=== PATIENT | female | born 1955 | race Caucasian/White ===

== ENCOUNTER → 2016-10-30 | Outpatient (CLI) | payer OTHER ==
--- NOTE | 2016-11-08 16:36 | REPMRS ---
Patient History Patient is postmenopausal and had first child at age 37. Family history of breast cancer in paternal grandmother. Patient has has had bxs of both breasts- all benign. Digital Mammo Screening Bilat: October 30, 2016 - Exam #: [id number] Bilateral CC and MLO view(s) were taken. Technologist: Hellen Oro, Technologist Prior study comparison: 2014, digital bilateral screening mammo, performed at [facility]. March 30, 2013, digital bilateral screening mammo, performed at [facility]. May 29, 2011, digital bilateral screening mammo, performed at [facility]. FINDINGS: There are scattered fibroglandular densities. There has been no change in the appearance of the mammogram from the prior studies. There is a needle biopsy marker clip in the upper outer quadrant left breast adjacent to some microcalcifications which are unchanged from the 2012 and 2010 prior studies. There is a mild amount of scattered fibroglandular density which is fairly symmetric. There is no interval development of dominant mass, architectural distortion, or clustered microcalcification suggestive of malignancy. ASSESSMENT: BI-RADS/ACR category 2 mammogram. Benign finding(s). Recommendation Routine screening mammogram in 1 year (for women over age 40). This mammogram was interpreted with the aid of an FDA-approved computer-aided dectection system. Electronically Signed By: Anuj Chin MD 11/08/16 [id number]
== END ==
LOC: M RAD 14:09
PROVIDERS: ATTEND Family Medicine
DX: Z12.31 Encounter for screening mammogram for malignant neoplasm of breast (principal); Z78.0 Asymptomatic menopausal state; R92.8 Other abnormal and inconclusive findings on diagnostic imaging of breast

== ENCOUNTER 2017-03-29 11:27 | Emergency (ER) | payer OTHER ==
[~2017-03-29] VITALS: Ht 167.6 cm; Wt 88.0 kg
[2017-03-29] MEDS ORDERED: LISI10TA4 (11:37)
[2017-03-29] MEDS ORDERED: FLUO40CA (11:37)
[2017-03-29] MEDS ORDERED: TRAD5TAB (11:37)
[2017-03-29] MEDS ORDERED: METF500T4 (11:37)
[2017-03-29] MEDS ORDERED: METO100T5 (11:37)
[2017-03-29] MEDS ORDERED: FENO160T10 (11:37)
[2017-03-29] MEDS ORDERED: CHOL4POW (11:37)
[2017-03-29] MEDS ORDERED: AFLU1INJ (11:37)
[2017-03-29] MEDS ORDERED: JARD1TAB3 (11:37)
[2017-03-29] MEDS ORDERED: NORT50CA (11:37)
[2017-03-29] MEDS ORDERED: INVO100T (11:37)
[2017-03-29] MEDS ORDERED: JANU100T (11:37)
[2017-03-29] MEDS ORDERED: HUMA50IN3 (11:37)
[2017-03-29] MEDS ORDERED: ARIP1TAB4 (11:37)
[2017-03-29] MEDS ORDERED: COLE625TAB (11:37)
[2017-03-29] MEDS ORDERED: ALPR0.25 (11:37)
[2017-03-29] MEDS ORDERED: ERYTOIN8 OS (13:38)
[2017-03-29 13:50] VITALS: BP 138/74
== END 2017-03-29 13:51 | disposition home or self-care (01) ==
LOC: M ED 11:27
DX: H00.025 Hordeolum internum left lower eyelid (principal); E11.9 Type 2 diabetes mellitus without complications; I10 Essential (primary) hypertension; E78.5 Hyperlipidemia, unspecified; K21.9 Gastro-esophageal reflux disease without esophagitis; F17.200 Nicotine dependence, unspecified, uncomplicated; Z79.4 Long term (current) use of insulin; Z88.0 Allergy status to penicillin

== ENCOUNTER → 2018-02-05 | Outpatient (CLI) | payer OTHER | LOC: M RAD 13:19 | DX: Z12.31 Encounter for screening mammogram for malignant neoplasm of breast (principal) | CPT/HCPCS: 77067 ==

== ENCOUNTER → 2019-06-02 | Outpatient (CLI) | payer OTHER ==
[~2019-06-02] MED LIST: AFLU1INJ; ALPR0.25; ARIP1TAB4; CHOL4POW; COLE625TAB; ERYTOIN8 OS; FENO160T10; FLUO40CA; HUMA50IN3; INVO100T; JANU100T; JARD1TAB3; LISI10TA4; METF-791; METO100T5; NORT50CA; TRAD5TAB
--- NOTE | 2019-06-02 16:00 | REPMRS ---
Patient History The patient states she has not had a clinical breast exam in over a year. Patient is postmenopausal, has history of other cancer at age 62, and had first child at age 37. Family history of breast cancer in paternal grandmother. Benign excisional biopsy of both breasts, 2008. 3D TOMOSYNTHESIS WAS PERFORMED. The [facility] lifetime risk for breast cancer is 17.2%. Digital Woman Screen Mammo: June 02, 2019 - Exam #: [id number] Bilateral CC and MLO view(s) were taken. Technologist: Alejandra Geronimo, Technologist Prior study comparison: February 05, 2018, bilateral digital mammo screening bilat, performed at [facility]. October 30, 2016, bilateral digital mammo screening bilat, performed at [facility]. FINDINGS: The breast tissue is heterogeneously dense. This may lower the sensitivity of mammography. There has been no change in the appearance of the mammogram from the prior studies. There is a moderate amount of residual fibroglandular tissue which is fairly symmetric. There is no interval development of dominant mass, areas of architectural distortion, or clustered microcalcification typical of malignancy. Assessment: BI-RADS/ACR category 1 mammogram. Negative Mammogram. Recommendation Routine screening mammogram in 1 year (for women over age 40). This mammogram was interpreted with the aid of an FDA-approved computer-aided dectection system. Electronically Signed By: Keith Solomon MD 06/02/19 0612
== END ==
LOC: M WHC 14:01
PROVIDERS: ATTEND Family Medicine
DX: Z12.31 Encounter for screening mammogram for malignant neoplasm of breast (principal); Z78.0 Asymptomatic menopausal state; Z85.9 Personal history of malignant neoplasm, unspecified

== ENCOUNTER → 2019-09-01 | Outpatient (CLI) | payer OTHER ==
--- NOTE | 2019-09-01 07:49 | REP ---
Clinical: Hepatomegaly. Technique: Real time rivera scale and color evaluation using curved array transducer. Findings: The liver is increased in echogenicity and enlarged measuring greater than 22 cm in craniocaudal length. No focal hepatic lesion identified. The pancreas is normal in appearance. The gallbladder has been removed. No biliary ductal dilatation is appreciated and the common bile duct measures 5.8 mm diameter. The right kidney is normal in reniform shape without hydronephrosis and measures 10.5 x 5.0 x 6.2 cm. No ascites in the visualized right upper quadrant. Impression: Hepatosteatosis and hepatomegaly without focal hepatic lesion. Electronically Signed by Lenin Brar MD 09/01/2019 07:41 A
== END ==
LOC: M RAD 07:05
PROVIDERS: ATTEND Internal Medicine Gastroenterology
DX: R16.0 Hepatomegaly, not elsewhere classified (principal)

== ENCOUNTER 2019-10-22 08:48 | Day surgery (SDC) | payer OTHER ==
[~2019-10-22] VITALS: Ht 167.6 cm; Wt 81.6 kg
[~2019-10-22 08:48] MED LIST changes: +ALOG25TA PO; -ALPR0.25; +ALPR0.25 PO; +B-12100010 PO; +COLE625T PO; +EZET10TA21 PO; -FENO160T10; +FENO160T10 PO; +FISH1000 PO; -FLUO40CA; +FLUO40CA PO; +GABA-843 PO; +GLYC1TAB18 PO; -HUMA50IN3; +HUMA50IN3 SQ; -LISI10TA4; +LISI10TA4 PO; -METF-791; +METF-791 PO; -METO100T5; +METO100T5 PO; -NORT50CA; +NORT50CA PO; +NS 1,000 ML IV ONE; +OMEP-221 PO; +STEG5TAB PO; +VITA500C24 PO; +VITAD1000T PO
[2019-10-22] MEDS ORDERED: LIDOCAINE 2% INJ 100 MG/5 ML SDV (FOR ANES.) As Ordered ONE (11:05)
[2019-10-22] MEDS ORDERED: propofoL 200 MG/20 ML VIAL As Ordered ONE ×2 (11:05→11:24)
--- NOTE | 2019-10-22 11:49 | ROOR ---
Patient Name: Amy Irwin Procedure Date: 10/22/2019 10:59 AM Date of : 1955 Age: 64 Room: [facility] Gender: Female Note Status: Finalized Procedure: Colonoscopy Indications: Screening for colorectal malignant neoplasm Providers: Luis Bro MD Referring MD: Sage Perry Requesting Provider: Medicines: Monitored Anesthesia Care Complications: No immediate complications. Procedure: Pre-Anesthesia Assessment: - Prior to the procedure, a History and Physical was performed, and patient medications and allergies were reviewed. The patient is competent. The risks and benefits of the procedure and the sedation options and risks were discussed with the patient. All questions were answered and informed consent was obtained. Patient identification and proposed procedure were verified by the physician, the nurse and the anesthesiologist in the procedure room. Mental Status Examination: alert and oriented. Airway Examination: normal oropharyngeal airway and neck mobility. Respiratory Examination: clear to auscultation. CV Examination: normal. Prophylactic Antibiotics: The patient does not require prophylactic antibiotics. Prior Anticoagulants: The patient has taken no previous anticoagulant or antiplatelet agents. ASA Grade Assessment: II - A patient with mild systemic disease. After reviewing the risks and benefits, the patient was deemed in satisfactory condition to undergo the procedure. The anesthesia plan was to use monitored anesthesia care (MAC). Immediately prior to administration of medications, the patient was re-assessed for adequacy to receive sedatives. The heart rate, respiratory rate, oxygen saturations, blood pressure, adequacy of pulmonary ventilation, and response to care were monitored throughout the procedure. The physical status of the patient was re-assessed after the procedure. The Colonoscope was introduced through the anus and advanced to the terminal ileum, with identification of the appendiceal orifice and IC valve. The colonoscopy was performed without difficulty. The patient tolerated the procedure well. The quality of the bowel preparation was good. The ileocecal valve, appendiceal orifice, and rectum were photographed. Scope insertion time was 4 minutes. Scope withdrawal time was 11 minutes. The total duration of the procedure was 16 minutes. Findings: The perianal and digital rectal examinations were normal. Four sessile polyps were found in the recto-sigmoid colon, descending colon and ascending colon. The polyps were 4 to 10 mm in size. These polyps were removed with a cold snare. Resection and retrieval were complete. Verification of patient identification for the specimen was done by the physician and nurse using the patient's name, date and medical record number. Estimated blood loss was minimal. Multiple small and large-mouthed diverticula were found from sigmoid to descending colon. There was no evidence of diverticular bleeding. Non-bleeding external and internal hemorrhoids were found during retroflexion. The hemorrhoids were medium-sized. Localized moderate inflammation characterized by congestion (edema), erythema and granularity was found at the ileocecal valve. Biopsies were taken with a cold forceps for histology. Normal mucosa was found from rectum to ascending colon. Biopsies for histology were taken with a cold forceps from the right colon, left colon and rectosigmoid colon for evaluation of microscopic colitis. Impression: - Four 4 to 10 mm polyps at the recto-sigmoid colon, in the descending colon and in the ascending colon, removed with a cold snare. Resected and retrieved. - Moderate diverticulosis from sigmoid to descending colon. There was no evidence of diverticular bleeding. - Non-bleeding external and internal hemorrhoids. - Localized moderate inflammation was found at the ileocecal valve secondary to colitis. Biopsied. - Normal mucosa from rectum to ascending colon. Biopsied. Recommendation: - Patient has a contact number available for emergencies. The signs and symptoms of potential delayed complications were discussed with the patient. Return to normal activities tomorrow. Written discharge instructions were provided to the patient. - High fiber diet. - Continue present medications. - Await pathology results. - Repeat colonoscopy in 3 years for surveillance based on pathology results. - Telephone GI clinic for pathology results in 2 weeks. - Return to primary care physician. Luis Bro MD Luis Bro MD 10/22/2019 11:49:17 AM Electronically signed by Luis Bro MD Number of Addenda: 0 Note Initiated On: 10/22/2019 10:59 AM Estimated Blood Loss: Estimated blood loss was minimal.
[2019-10-22 12:00] VITALS: BP 123/61
== END 2019-10-22 12:11 | disposition home or self-care (01) ==
LOC: M OPP 08:48
PROVIDERS: ATTEND Internal Medicine Gastroenterology
DX: D12.7 Benign neoplasm of rectosigmoid junction (principal); D12.4 Benign neoplasm of descending colon; D12.2 Benign neoplasm of ascending colon; K57.30 Diverticulosis of large intestine without perforation or abscess without bleeding; K64.8 Other hemorrhoids; K52.9 Noninfective gastroenteritis and colitis, unspecified; F17.210 Nicotine dependence, cigarettes, uncomplicated; Z79.4 Long term (current) use of insulin; Z79.02 Long term (current) use of antithrombotics/antiplatelets; Z79.899 Other long term (current) drug therapy; Z88.1 Allergy status to other antibiotic agents; Z88.8 Allergy status to other drugs, medicaments and biological substances

== ENCOUNTER → 2020-06-03 | Outpatient (CLI) | payer OTHER ==
[~2020-06-03] MED LIST changes: +D31000TA2 PO; -METF-791 PO; +METF-838 PO; -NS 1,000 ML IV ONE; -VITAD1000T PO
--- NOTE | 2020-06-03 16:11 | REPMRS ---
Patient History The patient states she has not had a clinical breast exam in over a year. Patient is postmenopausal, has history of other cancer at age 62, and had first child at age 37. Family history of breast cancer at age 80 in paternal grandmother, colorectal cancer at age 50 or over in maternal grandfather. Benign excisional biopsy of both breasts, 2008. No Hormone Replacement Therapy 3D TOMOSYNTHESIS WAS PERFORMED. The [facility] lifetime risk for breast cancer is 16.0%. VOLPARA DENSITY B. Digital Woman Screen Mammo: June 03, 2020 - Exam #: [id number] Bilateral CC and MLO view(s) were taken. Technologist: Pratima Wetzel, Technologist Prior study comparison: June 02, 2019, bilateral digital woman screen mammo performed at [facility]. February 05, 2018, bilateral digital mammo screening bilat, performed at [facility]. FINDINGS: There are scattered fibroglandular densities. There has been no change in the appearance of the mammogram from the prior studies. There is a mild amount of residual fibroglandular tissue which is fairly symmetric. There is no interval development of dominant mass, architectural distortion, or clustered microcalcification suggestive of malignancy. Assessment: BI-RADS/ACR category 1 mammogram. Negative Mammogram. Recommendation Routine screening mammogram in 1 year (for women over age 40). This mammogram was interpreted with the aid of an FDA-approved computer-aided dectection system. Electronically Signed By: Keith Solomon MD 06/03/20 [id number]
--- NOTE | 2020-06-14 14:35 | DEXA ---
AP SPINE L1 - L4 1.483 2.3 3.8 LT FEMUR TOTAL 1.079 0.6 1.6 LT NECK 0.928 0.8 0.6 RT FEMUR TOTAL 1.111 0.8 1.9 RT NECK 1.086 0.3 1.7 TOTAL BODY TOTAL OTHER COMMENTS: Normal bone densitometry of the spine and hips. The density of the spine has decreased 2.7% since the initial exam on 05/29/2011. The decreased 2.8% since the most recent exam on 09/30/2017. The density of the left hip has decreased 8.9% since the initial exam on 05/29/2011. The density of the left hip has decreased 7.1% since the most recent exam on 09/30/2017. Baseline. FOLLOW-UP: Recommendation for the next bone density exam: 5 years. CONNIE
== END ==
LOC: M WHC 14:48
PROVIDERS: ATTEND Family Medicine
DX: Z12.31 Encounter for screening mammogram for malignant neoplasm of breast (principal); Z78.0 Asymptomatic menopausal state; Z85.9 Personal history of malignant neoplasm, unspecified; Z80.3 Family history of malignant neoplasm of breast; Z80.0 Family history of malignant neoplasm of digestive organs; M85.88 Other specified disorders of bone density and structure, other site; M85.851 Other specified disorders of bone density and structure, right thigh; M85.852 Other specified disorders of bone density and structure, left thigh

== ENCOUNTER → 2022-09-21 | Outpatient (CLI) | payer MEDICARE ==
[~2022-09-21] MED LIST changes: +CHOL239.; -CHOL4POW; +COLE625T17; -COLE625TAB; -D31000TA2 PO; +GABA-282 PO; -GABA-843 PO; +LISI10TA22 PO; -LISI10TA4 PO; -OMEP-221 PO; +OMEP40CA5 PO; +VITA100093 PO
== END ==
LOC: M WHC 11:18
PROVIDERS: ATTEND Family Medicine
DX: Z12.31 Encounter for screening mammogram for malignant neoplasm of breast (principal)

== ENCOUNTER → 2023-02-05 | Outpatient (REF) | payer OTHER ==
[~2023-02-05] MED LIST changes: +APPL300T4 PO; +CALC600T60 PO; +COLE1TAB PO; +FARX1TAB3 PO; +JANU100T PO
== END ==
LOC: M LAB REF 17:00
PROVIDERS: ATTEND Nurse Practitioner Family
DX: R19.7 Diarrhea, unspecified (principal)

== ENCOUNTER → 2023-02-19 | Day surgery (SDC) | payer OTHER ==
[~2023-02-19] VITALS: Ht 160 cm; Wt 86.4 kg
[~2023-02-19] MED LIST changes: +NS 1,000 ML IV ONE; +propofoL 200 MG/20 ML VIAL As Ordered ONE
[2023-02-19 09:28] VITALS: BP 167/70; TEMP 96.6; O2SAT 97
== END | disposition home or self-care (01) ==
LOC: M OPP 07:29
PROVIDERS: ATTEND Internal Medicine Gastroenterology
DX: Z86.010 Personal history of colon polyps (principal); D12.6 Benign neoplasm of colon, unspecified; K57.30 Diverticulosis of large intestine without perforation or abscess without bleeding; K64.4 Residual hemorrhoidal skin tags; K64.8 Other hemorrhoids; Z79.4 Long term (current) use of insulin; Z79.891 Long term (current) use of opiate analgesic; Z79.899 Other long term (current) drug therapy; Z88.1 Allergy status to other antibiotic agents; Z88.8 Allergy status to other drugs, medicaments and biological substances

== ENCOUNTER → 2024-12-09 | Outpatient (CLI) | payer BC, MEDICARE ==
[~2024-12-09] MED LIST changes: +GABA-1172 PO; -GABA-282 PO; -NS 1,000 ML IV ONE; -propofoL 200 MG/20 ML VIAL As Ordered ONE
== END ==
LOC: M RAD 13:09
PROVIDERS: ATTEND Family Medicine
DX: R51.9 Headache, unspecified (principal); R29.6 Repeated falls

== ENCOUNTER → 2025-07-15 | Outpatient (CLI) | payer MEDICARE ==
[~2025-07-15] MED LIST changes: -EZET10TA21 PO; +EZET10TA57 PO
== END ==
LOC: M WHC 14:00
PROVIDERS: ATTEND Family Medicine
DX: Z12.31 Encounter for screening mammogram for malignant neoplasm of breast (principal); R92.323 Mammographic fibroglandular density, bilateral breasts; R92.1 Mammographic calcification found on diagnostic imaging of breast